=== PATIENT | female | born 1990 ===

== ENCOUNTER 2025-01-30 14:42 | Outpatient (AMB) | payer OTHER, SELFPAY ==
--- NOTE | 2025-01-30 14:47 | MHC.OFFVIS ---
Intake Visit Reasons: brain fog Allergies diphenhydramine (From [facility]) Allergy (Unknown, Verified 01/25/25 12:17) Unknown HPI Comments Details: This is a 34-year-old right-handed woman with a history of iron-deficiency anemia, insomnia and depression who has been experiencing periods of generalized weakness off and on for the last 2 years or so affecting the upper and lower extremities with fatigue. They can last from a few hours to several hours. She has had low B12 levels and is taking B12 supplements. On multiple occasions B12 levels have also been high. When she had stopped taking her B12 levels plummeted and she also had some brain fog and worsening of her weakness and some mumbling of words. She is had nerve conduction EMG studies in the past which were normal. Her MRI apparently showed a 2 mm pituitary microadenoma. Official report and films are not available for review and were not forwarded in the referral. FORMERLY [facility], [facility] Medical History (Updated 01/30/25 @ 15:32 by Marbella Cintron MD) Lichen sclerosus et atrophicus Positive APZ (antinuclear antibody) Vertigo Migraine Brain fog Review of Systems Const Reports fatigue and Reports headache(s) ENT Reports dizziness and Reports headache(s) Card Reports palpitations Reports dysuria Musc Reports abnormal gait and Reports arthralgias Neuro Reports abnormal gait, Reports dizziness, Reports headache(s) and Reports paresthesias Psych Reports anxiety and Reports depression Endo Reports fatigue and Reports palpitations Physical Exam Neuro Other: Mini Mental Status Exam Level of Consciousness:?Alert.? Orientation:?Knows correct year, month, date, day and season.?Knows correct city, county and state. Knows correct location and floor.? Registration:?Able to register 3 objects.? Attention:?Serial 7's performed?? accurately.? Recall:?Able to recall 3 out of 3 objects.? Language:?Normal spontaneous speech, fluency, repetition, naming, comprehension, reading, and writing.? ?? Total Score:?30/30.? Neurological Abnormal neurological findings:??None. ? Mental Status:?Alert and oriented X 3.?Normal attention, orientation, memory, and affect.? Cranial Nerves:?Pupils are equal, round and reactive to light. Fundoscopy shows normal disc bilaterally. External ocular muscles are intact. Visual wiseman are full, no ptosis. Face is symmetrical, no facial weakness or droop. Facial sensations are normal.? Tongue protrudes in midline. Palate elevates symmetrically. Shoulder?? shrugging is normal.? Motor Examination:?Normal muscle tone, bulk and strength.?No atrophy or fasciculations.?No drift of the extended upper extremities.?Deep tendon reflexes are 2+.?Plantars?? are flexor.? ?Motor Strength:? Proximal Muscles (out of 5):?5 Distal Muscles (out of 5):?5 Neck Flexors (out of 5):?5 Neck Extensors (out of 5):?5 Deltoid (out of 5):?5 Biceps (out of 5):?5 Triceps (out of 5):?5 Serratus Anterior (out of 5):?5 Wrist Extensors (out of 5):?5 APB (out of 5):?5 Finger Spread (out of 5):?5 Ileopsoas (out of 5):?5 Quadriceps (out of 5):?5 Hamstrings (out of 5):?5 Tibialis Anterior (out of 5):?5 Peronei (out of 5):?5 EDB (out of 5):?5 Gastrocnemius (out of 5):?5 Straight Leg Raising:?90 degrees.? Sensory Exam:?Normal light touch,?? temperature, pinprick, vibration and joint-position sensations.?Rhomberg?? sign is absent.? Coordination:?No ataxia,?no titubation,?znawoz-qa-iijf, bott-frra-uwdo test, and rapid alternating?? movements were normal.? Gait Exam:?Normal. ? Cerebellar Signs:?Gozgfx-ru-zubf and?? cuxf-iv-fyuk is normal.?No dysdiadochokinesia.? Extrapyramidal System:?No tremor or?rigidity, normal facial expressions.?No bradykinesia. No bradyphrenia. Normal arm swing and posture. No propulsion or retropulsion.? Speech:?Normal,?no dysphasia or dysarthria.? General Examination GENERAL APPEARANCE:??Morbid obesity, in no acute distress?.? ?? HEAD:??normocephalic,?atraumatic.? ?? EYES:??sclera non-icteric,?conjunctiva clear.? ?? EARS:??auditory canal clear,?tympanic membrane intact, clear.? ?? NOSE:??no lesions.? ?? ORAL CAVITY:??gums normal,?mucosa moist,?no lesions.? ?? THROAT:??clear.? ?? NECK/THYROID:??no cervical lymphadenopathy,?thyroid normal,?neck supple, full range of motion,?no carotid bruit.? ?? SKIN:??no rashes,?no significant?? birthmarks.? ?? HEART:??S1, S2 normal,?no murmurs? ?? LUNGS:??clear anteriorly and? posteriorly? ?? CHEST:??no gross rib deformity,?clear to? auscultation.? ?? BACK:??normal exam of spine.? ?? MUSCULOSKELETAL:??normal.? ?? EXTREMITIES:??no edema.? ?? PERIPHERAL PULSES:??normal.? ?? PSYCH:??alert, oriented,?cognitive function intact,?cooperative Assessment & Plan Assessment & Plan (1) Chronic fatigue: Code(s): R53.82 - Chronic fatigue, unspecified Category: Medical (2) Pituitary microadenoma: Comment: Questionable finding. No change from MRI in the remote past Code(s): D35.2 - Benign neoplasm of pituitary gland Category: Medical Plan Reassurance. Follow up with PCP. No neurological workup necessary at this time. Coding Level of Care Code New Pt Level 5 (69257) Diagnoses Chronic fatigue R53.82 Pituitary microadenoma D35.2
--- OUTSIDE RECORDS SUMMARY | 2025-01-30 16:01 | XMS_ITS | Encounter Summary ---
Author Organization [facility] Address [address] [place] [address] Care Team Providers Care Harmonic Analyst Name Role Phone Capo Alfonso MD Primary Care Pr ovider Encounter Details Date Type Department Care Team ([facility] st Contact Info) Description 11/24/2024 Results Follow-Up Adult Medicine [address] [phone] Alesia Finney PA [address] [place] [address] Social History Tobacco Use Types Packs/Day Years Used Date Smoking Tobacco: Never Smokeless Tobacco: Never Alcohol Use Standard Drinks/Week Comments No 0 (1 standard drink = 0.6 oz pur e alcohol) Housing Instability Answer Date Recorde d Are you worried that in the next 2 months you may not have stable housing? No 06/12/2024 Food Access & Nutrition Answer Date Rec orded Do you have access to a vari ety of food including fruits and vegetables? Yes 06/12/2024 Access to Healthcare Answer Date Record ed Within the last 3 months, ho w many times did you visit the emergency department for your medical care? 0 06/12/2024 Health Literacy Answer Date Recorded How often do you need to hav e someone help you when you read instructions, pamphlets, or other written material from your doctor or pharmacy? Never 06/12/2024 Caregiver: How often do you need to have someone help you when you read instructions, pamphlets, or other written material from your doctor or pharmacy? Not on file 06/12/2024 Financial Risk Answer Date Recorded How hard is it for you to pa y for the very basics like food, housing, medical care, and air conditioning / heating? Not very hard 06/12/2024 Transportation Answer Date Recorded Has the lack of transportati on kept you from meetings, work, or from getting things needed for daily living? No Has the lack of transportati on kept you from medical appointments or from getting medications? No 06/12/2024 Social Isolation Answer Date Recorded How often do you feel lonely or isolated from th ose around you? Never 06/12/2024 Food Risk Answer Date Recorded Within the past 12 months we worried whether our food would run out before we got money to buy more. Never true 06/12/2024 Within the past 12 months th e food we bought just didn't last and we didn't have money to get more. Never true 06/12/2024 Dependent Care Answer Date Recorded Do you need help finding or paying for care for your loved ones. For example, child development director or elderly care for an older adult? No 06/12/2024 Education Answer Date Recorded Do you think completing more education or training, like finishing a GED, going to college, or learning a trade, would be helpful for you? N/A 06/12/2024 Employment and Income Answer Date Recor ded During the last four weeks, have you been actively looking for work? No 06/12/2024 Living Situation Answer Date Recorded What is your living situation? Unrecognized valu e 06/12/2024 Comments No Sex and Gender Information Value Date Recorded Sex Assigned at Not on file Legal Sex Female 6:51 PM EST Gender Identity Not on file Sexual Orientation Not on file Occupation Industry Job Start Date Job End Date Not on file Not on file Not on file Not on file documented as of this encounter Plan of Treatment Upcoming Encounters Date Type Department Care Team (Late st Contact Info) Description 07/19/2025 12:30 PM EDT Office Visit Adult Medicine [address] [phone] Alesia Finney PA [address] [place] [address] documented as of this encounter Visit Diagnoses Not on filedocumented in this encounter Additional Health Concerns Assessment Noted Time PHQ-9 Depression Total Score: 3 06/13/19 25 3:35 PM EDT documented as of this encounter Care Teams Harmonic Analyst Relationship Specialty Start Date End Date Capo Alfonso MD [address] [place], [place] PCP - General Internal Medicine 09/01/21 documented as of this encounter
--- OUTSIDE RECORDS SUMMARY | 2025-01-30 16:01 | XMS_ITS | Encounter Summary ---
Author Organization [facility] Address [address] [place] [address] Care Team Providers Care Manager State Name Role Phone Capo Alfonso MD Primary Care Pr ovider Encounter Details Date Type Department Care Team ([facility] st Contact Info) Description 12/06/2024 Results Follow-Up Obstetrics and Gynecology - [address] [phone] Ashely Talavera, [facility] [address] [place], [place] Social History Tobacco Use Types Packs/Day Years [...] care for your loved ones. For example, childcare attendant or elderly care for an older adult? [...] Upcoming Encounters Date Type Department Care Team ([facility] st Contact Info) Description 07/19/2025 12:30 PM EDT Office Visit Adult Medicine [address] [phone] Alesia Finney PA [address] [place] [address] documented as of this encounter Visit Diagnoses Not on filedocumented in this encounter Additional Health Concerns Assessment Noted Time PHQ-9 Depression Total Score: 3 06/13/19 25 3:35 PM EDT documented as of this encounter Care Teams Manager State Relationship Specialty Start Date End Date Capo Alfonso MD [address] [place], [place] PCP - General Internal Medicine 09/01/21 documented as of this encounter
--- OUTSIDE RECORDS SUMMARY | 2025-01-30 16:01 | XMS_ITS ---
Author Name [facility] Organization Unknown Care Team Organization Name Specialty Phone Email Start Date End Da te [facility] TREMAINE RUEDA Primary Care [email or web address] 10/15/2022 4 [facility] Shirley [facility] Primary [facility] 12/16/2021 4
--- OUTSIDE RECORDS SUMMARY | 2025-01-30 16:01 | XMS_ITS | Clinical Summary ---
Author Organization [facility] [address] [place] [address] [place] [phone] Phone Care Team Providers Care Concrete Carpenter Name Role Phone Capo Alfonso MD Primary Care Pr ovider Allergies Active Allergy Reactions Criticality Noted Date Comments Nitrofurantoin Monohyd/M-Cryst Anaphylaxis High 12/0 08/2022 Other Anaphylaxis High 03/29/2012 Triaminic Pollen Extracts Itching 11/01/2014 Medications cholecalcifero l (VITAMIN D-3) 25 mcg (1,000 unit) capsule Take 1 Capsule by mouth daily. Active ferrous gluconate (FERGON) 240 mg (27 mg iron) tablet Take 1 Tablet by mouth every 48 hours. 2 Active MAGNESIUM ORAL Take by mouth. Active multivit-min/f errous fumarate (MULTI VITAMIN ORAL) Take by mouth. Active Lactobac no.41/Bifidoba ct no.7 (PROBIOTIC-10 ORAL) Take by mouth. Active cyanocobalamin (VITAMIN B-12) 1,000 mcg tablet Take 1 Tablet by mouth daily. 3 Active acetaminophen (TYLENOL) 500 mg tablet TAKE 2 TABLETS BY MOUTH 4 TIMES A DAY 4 Active cetirizine (ZyrTEC) 10 mg tablet Take 1 tablet (10 mg total) by mouth 1 (one) time each day. Active aspirin 81 mg EC tablet Take 1 tablet (81 mg total) by mouth 1 (one) time each day. Active triamcinolone (KENALOG) 0.1 % ointmentIndica tions:Other eczema Apply small amounts to affected area every 12 hours. Do not use for more than 14 days at a time 15 g 5 Active nystatin-triam cinolone (MYCOLOG II) ointment Apply a thin layer twice weekly 30 g 1 5 Active topiramate (TOPAMAX) 25 mg tabletIndicati ons:Migraine with visual aura Take 1 tablet (25 mg total) by mouth at bedtime. 90 each 5 025 Discontinued Active Problems Problem Noted Date Diagnosed Date Pituitary microadenoma 01/17/2025 Lichen sclerosus et atrophicus 07/04/2024 Overview (07/11/2024): On medial labia Assessment & Plan (07/04/2024 3:11 PM EDT): Based on findings, most likely represents a scar from a previous cyst, but this does not explain the hypopigmentation. I recommended a biopsy to determine etiology. She agreed. Vulvar Biopsy Reason for biopsy: Encounter Diagnosis Name Primary? Vulvar lesion Yes The patient was consented for vulvar biopsy. Risks reviewed including bleeding, infection, and hematoma formation. She was placed in dorsal lithotomy position. The area of planned biopsy was prepped with betadine and infiltrated with a total of 1 cc of 0.25% Marcaine. A 4 mm punch biopsy was taken and harvested with forceps and Iris scissors. Hemostasis was obtained with pressure and silver nitrate. Zinc oxide was applied. The patient tolerated the procedure well. Verbal and written instructions were provided. Eczema 06/14/2024 ASCUS of cervix with negative high risk HPV 02/09 Overview (02/29/2024): 01/2023 ascus, neg hpv Plan: per asccp repeat 3yrs Dysmenorrhea 11/09/2023 Menorrhagia with regular cycle 11/09/2023 Assessment & Plan (06/12/2024 3:42 PM EDT): For now she defers management. See HPI Fibroid uterus 11/14/2022 Overview (11/09/2023): 2017 There is a 1.4 x 1.8 x 1.1 cm hypoechoic subserosal myometrial mass posteriorly in the fundus consistent with a single small fibroid 11/09/2022 IMPRESSION: 1. Uterine fibroid measuring 5.8 cm 2. Possible arcuate configuration of the uterus 3. 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 Will update labs Orders: CBC and differential; Future Ferritin; Future Iron and TIBC; Future Vitamin B12; Future Vitamin D 25 hydroxy; Future Recurrent vaginitis 04/12/2018 Overview (11/09/2023): Last Assessment & Plan: I reviewed with May that she has had both yeast and BV, neither documented more than three times in the past year. As such, do not recommend that she is started on suppresive therapy. I did, however, recommend that she have office pH and lab wet smear, as well as yeast culture if she should develop recurrent symptoms in the future. She can see any provider, but this standard testing will be very helpful in determining if she has true recurrent infectious vaginitis. She agreed. Migraine with visual aura 11/01/2014 Assessment & Plan (06/12/2024 3:42 PM EDT): She is willing to try Topamax at night for migraine headache prophylaxis She will follow-up in 3 months She will continue Excedrin as needed for abortive therapy Orders: Comprehensive metabolic panel; Future topiramate (TOPAMAX) 25 mg tablet; Take 1 tablet (25 mg total) by mouth at bedtime. Vertigo 11/01/2014 Encounters Date Type Department Care Team Description 01/24/2025 Results Follow-Up Adult [address] [phone] Alesia Finney PA 01/22/2025 2:34 PM EST - 01/22/2025 11:59 PM EST Hospital Encounter Radiology Department - [address] [phone] Left-sided pelvic pain Discharge Disposition: Home or Self Care 01/22/2025 Results Follow-Up Obstetrics and Gynecology - [address] [phone] Tati Spencer CNM 01/17/2025 12:00 PM EST Lab Draw Station - [address] Iron deficiency anemia secondary to blood loss (chronic); Other fatigue; Vitamin D deficiency 01/17/2025 11:30 AM EST Office Visit Adult [address] [phone] Alesia Finney PA Other fatigue (Primary Dx); History of weakness of extremity; Migraine with visual aura; Pituitary microadenoma (CMS/HCC V24, CMS/HCC V28); Iron deficiency anemia secondary to blood loss (chronic); Vitamin D deficiency 12/25/2024 9:45 AM EST Office Visit Obstetrics and [facility] - [address] [phone] Tati Spencer CNM Left-sided pelvic pain (Primary Dx) 12/13/2024 3:20 PM EST Lab Draw Station - [address] Brain fog; Other fatigue; History of weakness of extremity 12/07/2024 1:33 PM EDT - 12/07/2024 11:59 PM EDT Hospital Encounter [facility] Ultrasound [address] [place] [id number] Left-sided pelvic pain Discharge Disposition: Home or Self Care 12/06/2024 Results Follow-Up Obstetrics and Gynecology - [address] [phone] Ashely Talavera CNM 12/05/2024 2:00 PM EDT Office Visit Obstetrics and Gynecology - [address] [phone] Ashely Talavera, ADALBERTO Left-sided pelvic pain (Primary Dx); Intermenstrual bleeding; Screen for STD (sexually transmitted disease); examination or test, negative result 11/30/2024 Telephone Obstetrics and Gynecology - [address] [phone] Monica Coughlin CNM 11/30/[address] [facility] - [address] [phone] Donnell Toledo NP 11/30/2024 Results Follow-Up Walk-In [facility] - [address] [phone] Donnell Toledo NP 11/29/2024 4:15 PM EDT Office Visit Walk-In [address] [phone] Donnell Toledo NP Lower urinary tract symptoms (Primary Dx) 11/29/2024 Nurse Triage Adult [address] [phone] Danni Greene MA 11/24/2024 Results Follow-Up Adult Medicine [address] [phone] Alesia Finney PA 11/22/2024 2:48 PM EDT - 11/22/2024 11:59 PM EDT Hospital Encounter Radiology Department - [address] [phone] Brain fog; Other fatigue; History of weakness of extremity; History of pituitary adenoma Discharge Disposition: Home or Self Care 11/08/2024 3:00 PM EDT Office Visit Adult Medicine South [address] [phone] Alesia Finney PA Other fatigue (Primary Dx); History of weakness of extremity; Brain fog; History of pituitary adenoma; Rash; Lichen sclerosus et atrophicus; Thrombocytosis from Last 3 Months Immunizations Immunization Administration Dates Next Due Influenza Quadravalent, MDCK , 0.5ml, preservative free (Flucelvax) 6mo and older 11/20/2022,12/01/2021 Influenza Quadravalent, MDCK , 0.5ml, with preservative (Flucelvax) 6mo and older 11/02/2019 Influenza Quadrivalent, 0.5m l, preservative free (Fluarix; FluLaval; Fluzone) ages 6mo and older (Afluria) 3yo and older 12/16/2018 Influenza trivalent, MDCK, 0 .5mL, preservative free (Flucelvax) 6mo and older 11/08/2024 Influenza trivalent, with pr eservative (Fluzone; Afluria) 6mo and older 12/16/2018 Influenza, Unspecified 10/23/2020,11/09/2019 Pfizer (ages 12 & older) Bivalent, COVID-19 11/09 Pfizer SARS-CoV-2 COVID-19, mRNA, LNP-S, preservative free 02/11/2021,02/05/2021 Tdap Tetanus diptheria acell ular pertussis (Boostrix; Adacel) 7yo and older 09/21/2022,03/29/2012 Surgical History Surgery Date Site/Laterality Comments WISDOM TOOTH EXTRACTION 2016 PROCEDURE: HISTORICAL WISDOM TEETH EXTRACTION MYOMECTOMY 11/09/2023 - 12/09/2023 Medical History Medical History Date Comments Vertigo 11/01/2014 DX:Vertigo Bacterial vaginosis 01/30/2020 DX:Bacterial vaginosis Vulvar itching 06/25/2017 DX:Vulvar itchin g Chronic constipation 06/25/2017 DX:Chronic constipation Family History Medical History Relation Name Comments No Known Problems Brother Colon cancer Father Liver cancer Father Hypertension Maternal Grandmother Thyroid disease Maternal Grandmother No Known Problems Mother Diabetes Paternal Grandfather Breast cancer Neg Hx Heart attack Neg Hx Ovarian cancer Neg Hx Relation Name Status Comments Brother Alive Father Alive Maternal Grandfather Alive Maternal Grandmother Alive Mother Alive Paternal Grandfather Paternal Grandmother Alive Social History Tobacco Use Types Packs/Day Years Used Date Smoking Tobacco: Never Smokeless Tobacco: Never Tobacco Cessation:Counseling Given: Not Answered Alcohol Use Standard Drinks/Week Comments No 0 [...] for your loved ones. For example, child watch attendant or elderly care for an older [...] file Not on file Not on file Obstetrics History Para Term AB IAB SAB Ectopic Multiple Livin g Live Births 0 0 0 0 0 0 0 0 Last Filed Vital Signs Vital Sign Reading Time Taken Comments Blood Pressure 123/73 01/17/2025 11:24 AM EST Pulse 83 01/17/2025 11:24 AM EST Temperature 35.9 C (96.6 F) 01/17/2025 11:24 AM EST Respiratory Rate 14 01/17/2025 11:24 AM EST Oxygen Saturation 98% 11/29/2024 4:01 PM EDT Inhaled Oxygen Concentration - - Weight 55.3 kg (122 lb) 01/17/2025 11:24 AM EST Height 160 cm (5' 3 ) 01/17/2025 11:24 AM EST Body Mass Index 21.61 01/17/2025 11:24 AM EST Plan of Treatment Upcoming Encounters Date Type Department Care Team (Late st Contact Info) Description 07/19/2025 12:30 PM EDT Office Visit Adult Medicine [address] [phone] Alesia Finney PA [address] [place] [address] Health Maintenance Due Date Last Done Comments Hepatitis B Vaccines (1 of 3 - 19+ 3-dose series) 2008 HPV Vaccines (1 - 3-dose SCDM series) 2016 HIV Screening 01/10/2022 Social Influencers of Health Screening 06/12/2025 06/12/2024 Cervical Cancer Screening: HPV 10/28/2027 10/27/2022 Cholesterol Screening (Lipid Panel) 06/14/2029 06/14/2024, 06/10/2023, 06/10/2023 DTaP,Tdap,and Td Vaccines (3 - Td or Tdap) 09/21/2032 09/21/2022, 03/29/2012 RSV Immunization Adult Patients (1 - 1-dose 75+ series) 2064 Hepatitis C Screening Completed 09/26/2021 COVID-19 Vaccine Discontinued 12/01/2021, 05/2021, 02/05/2021, Additional history exists Influenza Vaccine Completed 11/08/2024, , 12/01/2021, Additional history exists Depression Screening Completed 01/17/2025, 06/10/19 HIB Vaccines Aged Out No longer eligi ble based on patient's age to complete this topic Hepatitis A Vaccines Aged Out No long er eligible based on patient's age to complete this topic IPV Vaccines Aged Out No longer eligi ble based on patient's age to complete this topic MMR Vaccines Aged Out No longer eligi ble based on patient's age to complete this topic Meningococcal ACWY Vaccine Aged Out N o longer eligible based on patient's age to complete this topic Meningococcal B Vaccine Aged Out No l onger eligible based on patient's age to complete this topic Pneumococcal Vaccine: Pediatrics (0 to 5 Years) and At-Risk Patients (6 to 49 Years) Aged Out No longer eligible based on patient's age to complete this topic RSV Immunization Patients Under 20 months Aged Out No longer eligible based on patient's age to complete this topic Varicella Vaccines Aged Out No longer eligible based on patient's age to complete this topic Procedures Procedure Name Priority Date/Time Associated Diagnosis Comments US DUPLEX ABDOMEN/PELVIS/RETRO LIMITED Routine 01/22/2025 3:09 PM EST Left-sided pelvic pain US PELVIS NON OB COMPLETE W TRANSVAGINAL Routine 01/22/2025 3:09 PM EST Left-sided pelvic pain CBC WITH AUTO DIFFERENTIAL Routine 01/17/2025 11:56 AM EST Iron deficiency anemia secondary to blood loss (chronic) Other fatigue CBC AND DIFFERENTIAL Routine 01/17/2025 11:56 AM EST Iron deficiency anemia secondary to blood loss (chronic) Other fatigue IRON AND TIBC Routine 01/17/2025 11:56 AM EST Iron deficiency anemia secondary to blood loss (chronic) Other fatigue VITAMIN B12 Routine 01/17/2025 11:56 AM EST Iron deficiency anemia secondary to blood loss (chronic) Other fatigue VITAMIN D 25 HYDROXY Routine 01/17/2025 11:56 AM EST Iron deficiency anemia secondary to blood loss (chronic) Other fatigue Vitamin D deficiency FERRITIN Routine 01/17/2025 11:56 AM EST Iron deficiency anemia secondary to blood loss (chronic) Other fatigue CBC WITH AUTO DIFFERENTIAL Routine 12/13/2024 3:28 PM EST Other fatigue History of weakness of extremity CBC AND DIFFERENTIAL Routine 12/13/2024 3:28 PM EST Other fatigue History of weakness of extremity COMPREHENSIVE METABOLIC PANEL Routine 12/13/2024 3:28 PM EST Other fatigue History of weakness of extremity VITAMIN B12 Routine 12/13/2024 3:28 PM EST Brain fog Other fatigue THYROID STIMULATING HORMONE WITH REFLEX TO FREE T4 AND FREE T3 Routine 12/13/2024 3:28 PM EST Brain fog Other fatigue US PELVIS NON OB COMPLETE W TRANSVAGINAL Routine 12/07/2024 2:26 PM EDT Left-sided pelvic pain POC , URINE DIAGNOSTIC Routine 12/05/2024 3:58 PM EDT Left-sided pelvic pain TRICHOMONAS VAGINALIS ANTIGEN Routine 12/05/2024 2:47 PM EDT Left-sided pelvic pain CULTURE URINE Routine 12/05/2024 2:47 PM EDT Left-sided pelvic pain WET PREP, GENITAL Routine 12/05/2024 2:4 7 PM EDT Left-sided pelvic pain CHLAMYDIA TRACHOMATIS AND NEISSERIA GONORRHOEAE PCR Routine 12/05/2024 2:47 PM EDT Screen for STD (sexually transmitted disease) POC URINE NON-AUTO W/O MICRO Routine 11/29/2024 4:26 PM EDT Lower urinary tract symptoms URINALYSIS MICROSCOPIC ONLY Routine 11/29/2024 4:21 PM EDT Lower urinary tract symptoms URINALYSIS MICROSCOPIC ONLY Routine 11/29/2024 4:21 PM EDT Lower urinary tract symptoms VAGINITIS PATHOGENS BY PCR Routine 11/29/2024 4:21 PM EDT Lower urinary tract symptoms CULTURE URINE Routine 11/29/2024 4:21 PM EDT Lower urinary tract symptoms MR BRAIN WO AND W CONTRAST Routine 11/22/2024 3:44 PM EDT Brain fog Other fatigue History of weakness of extremity History of pituitary adenoma LIPID PANEL WITH REFLEX TO DIRECT LDL Routine 06/14/2024 9:27 AM EDT Screening for metabolic disorder HM DEPRESSION SCREENING Routine 06/10/2023 HM HPV Routine 10/27/2022 HM HEPATITIS C SCREENING Routine 09/26/2021 from Last 3 Months or Most Recently Relevant to Health Maintenance Results * US Pelvis Non OB Complete w Transvaginal (01/22/2025 3:09 PM EST) Only the most recent of2 resultswithin the time period is included. Anatomical Region Laterality Modality Body, Pelvis Ultrasound 01/22/2025 3:22 PM EST Impressions 01/22/2025 3:29 PM EST 1. Echogenic ovoid lesions within the endometrium which may represent polyps. Consider direct visualization. 2. Intramural fibroids. 3. Right ovarian cyst with multiple echoes. Follow-up ultrasound in 6-8 weeks is recommended. 4. Trace free fluid -------- FINAL REPORT -------- Dictated By: Kristen Schultz Dictated Date: 01/22/2025 15:22 ET Assigned Physician: Kristen Schultz Reviewed and Electronically Signed By: Kristen Schultz Signed Date: 01/22/2025 15:29 ET Workstation ID: [id number] Transcribed By: Self Edit Transcribed Date: 01/22/2025 15:22 ET Narrative 01/22/2025 3:29 PM EST EXAM: TRANSABDOMINAL AND TRANSVAGINAL PELVIC ULTRASOUND HISTORY: abnormal uterine bleeding COMPARISON: Ultrasound pelvis from 08/05/2023 Technique: Grayscale and Doppler images of the pelvis were obtained using transabdominal approach. Transvaginal approach was used to better characterize the ovaries. Color Doppler flow and spectral waveform analysis FINDINGS: The uterus is normal in size and measures 8.2 x 4.0 x 5.2 cm. The endometrial stripe measures up to 0.9 cm. Echogenic ovoid lesions measuring 0.8 x 0.2 x 0.6 cm and 0.7 x 0.2 x 0.6 cm within the endometrium. Hypoechoic solid masses within the intramural region measuring 1.0 x 0.8 x 1.0 cm and 1.0 x 0.6 x 1.0 cm. Right ovary measures 4.0 x 2.9 x 2.9 cm and contains an anechoic thin-walled cyst with multiple echoes measuring 2.7 x 3.1 x 3.0 cm. Normal arterial and venous waveforms are identified. Left ovary measures 3.2 x 1.7 x 1.4 cm and is also sonographically unremarkable. Normal arterial waveform is present. The venous waveform is not seen. Trace free fluid. Procedure Note Kristen Schultz MD - 01/22/2025 EXAM: TRANSABDOMINAL AND TRANSVAGINAL PELVIC ULTRASOUND HISTORY: abnormal uterine bleeding COMPARISON: Ultrasound pelvis from 08/05/2023 Technique: Grayscale and Doppler images of the pelvis were obtained usingtransabdominal approach. Transvaginal approach was used to bettercharacterize the ovaries. Color Doppler flow and spectral waveformanalysis FINDINGS: The uterus is normal in size and measures 8.2 x 4.0 x 5.2 cm. Theendometrial stripe measures up to 0.9 cm. Echogenic ovoid lesionsmeasuring 0.8 x 0.2 x 0.6 cm and 0.7 x 0.2 x 0.6 cm within theendometrium. Hypoechoic solid masses within the intramural regionmeasuring 1.0 x 0.8 x 1.0 cm and 1.0 x 0.6 x 1.0 cm. Right ovary measures 4.0 x 2.9 x 2.9 cm and contains an anechoicthin-walled cyst with multiple echoes measuring 2.7 x 3.1 x 3.0 cm. Normalarterial and venous waveforms are identified. Left ovary measures 3.2 x 1.7 x 1.4 cm and is also sonographicallyunremarkable. Normal arterial waveform is present. The venous waveform isnot seen. Trace free fluid. IMPRESSION: 1. Echogenic ovoid lesions within the endometrium which may representpolyps. Consider direct visualization. 2. Intramural fibroids. 3. Right ovarian cyst with multiple echoes. Follow-up ultrasound in 6-8weeks is recommended. 4. Trace free fluid -------- FINAL REPORT -------- Dictated By: Kristen Schultz Dictated Date: 01/22/2025 15:22 ET Assigned Physician: Kristen Schultz Reviewed and Electronically Signed By: Kristen Schultz Signed Date: 01/22/2025 15:29 ET Workstation ID: [id number] Transcribed By: Self Edit Transcribed Date: 01/22/2025 15:22 ET us Tati Spencer CNM IMG US PROCEDURES Final Res ult * US Duplex Abdomen/Pelvis/Retro Limited (01/22/2025 3:09 PM EST) Anatomical Region Laterality Modality Body Ultrasound 01/22/2025 3:22 PM EST Impressions 01/22/2025 3:29 PM EST 1. Echogenic ovoid lesions within the endometrium which may represent polyps. Consider direct visualization. 2. Intramural fibroids. 3. Right ovarian cyst with multiple echoes. Follow-up ultrasound in 6-8 weeks is recommended. 4. Trace free fluid -------- FINAL REPORT -------- Dictated By: Kristen Schultz Dictated Date: 01/22/2025 15:22 ET Assigned Physician: Kristen Schultz Reviewed and Electronically Signed By: Kristen Schultz Signed Date: 01/22/2025 15:29 ET Workstation ID: [id number] Transcribed By: Self Edit Transcribed Date: 01/22/2025 15:22 ET Narrative 01/22/2025 3:29 PM EST EXAM: TRANSABDOMINAL AND TRANSVAGINAL PELVIC ULTRASOUND HISTORY: abnormal uterine bleeding COMPARISON: Ultrasound pelvis from 08/05/2023 Technique: Grayscale and Doppler images of the pelvis were obtained using transabdominal approach. Transvaginal approach was used to better characterize the ovaries. Color Doppler flow and spectral waveform analysis FINDINGS: The uterus is normal in size and measures 8.2 x 4.0 x 5.2 cm. The endometrial stripe measures up to 0.9 cm. Echogenic ovoid lesions measuring 0.8 x 0.2 x 0.6 cm and 0.7 x 0.2 x 0.6 cm within the endometrium. Hypoechoic solid masses within the intramural region measuring 1.0 x 0.8 x 1.0 cm and 1.0 x 0.6 x 1.0 cm. Right ovary measures 4.0 x 2.9 x 2.9 cm and contains an anechoic thin-walled cyst with multiple echoes measuring 2.7 x 3.1 x 3.0 cm. Normal arterial and venous waveforms are identified. Left ovary measures 3.2 x 1.7 x 1.4 cm and is also sonographically unremarkable. Normal arterial waveform is present. The venous waveform is not seen. Trace free fluid. Procedure Note Kristen Schultz MD - 01/22/2025 EXAM: TRANSABDOMINAL AND TRANSVAGINAL PELVIC ULTRASOUND HISTORY: abnormal uterine bleeding COMPARISON: Ultrasound pelvis from 08/05/2023 Technique: Grayscale and Doppler images of the pelvis were obtained usingtransabdominal approach. Transvaginal approach was used to bettercharacterize the ovaries. Color Doppler flow and spectral waveformanalysis FINDINGS: The uterus is normal in size and measures 8.2 x 4.0 x 5.2 cm. Theendometrial stripe measures up to 0.9 cm. Echogenic ovoid lesionsmeasuring 0.8 x 0.2 x 0.6 cm and 0.7 x 0.2 x 0.6 cm within theendometrium. Hypoechoic solid masses within the intramural regionmeasuring 1.0 x 0.8 x 1.0 cm and 1.0 x 0.6 x 1.0 cm. Right ovary measures 4.0 x 2.9 x 2.9 cm and contains an anechoicthin-walled cyst with multiple echoes measuring 2.7 x 3.1 x 3.0 cm. Normalarterial and venous waveforms are identified. Left ovary measures 3.2 x 1.7 x 1.4 cm and is also sonographicallyunremarkable. Normal arterial waveform is present. The venous waveform isnot seen. Trace free fluid. IMPRESSION: 1. Echogenic ovoid lesions within the endometrium which may representpolyps. Consider direct visualization. 2. Intramural fibroids. 3. Right ovarian cyst with multiple echoes. Follow-up ultrasound in 6-8weeks is recommended. 4. Trace free fluid -------- FINAL REPORT -------- Dictated By: Kristen Schultz Dictated Date: 01/22/2025 15:22 ET Assigned Physician: Kristen Schultz Reviewed and Electronically Signed By: Kristen Schultz Signed Date: 01/22/2025 15:29 ET Workstation ID: [id number] Transcribed By: Self Edit Transcribed Date: 01/22/2025 15:22 ET us Tati Spencer CNM IMG US PROCEDURES Final Res ult * (ABNORMAL) CBC auto differential (01/17/2025 11:56 AM EST) Only the most recent of2 resultswithin the time period is included. WBC 8.9 4.8 - 10.8 K/[facility] LAB HEMETOLOGY METHOD 01/17/2025 2:37 PM [facility] RBC 4.30 3.80 - 4.80 M/mcL LAB HEMETOLOGY METHOD 01/17/2025 2:37 PM [facility] Hemoglobin 13.3 11.5 - 16.0 g/dL LAB HEMETOLOGY METHOD 01/17/2025 2:37 PM [facility] Hematocrit 40.3 35.0 - 47.0 % LAB HEMETOLOGY METHOD 01/17/2025 2:37 PM [facility] MCV 92.9 79.0 - 98.0 FL LAB HEMETOLOGY METHOD 01/17/2025 2:37 PM [facility] MCH 30.6 27.0 - 32.0 pcg LAB HEMETOLOGY METHOD 01/17/2025 2:37 PM [facility] MCHC 33.0 32.0 - 37.0 g/dL LAB HEMETOLOGY METHOD 01/17/2025 2:37 PM [facility] RDW 13.5 11.0 - 15.0 % LAB HEMETOLOGY METHOD 01/17/2025 2:37 PM [facility] Platelets 532(H) 130 - 400 K/mcL LAB HEMETOLOGY METHOD 01/17/2025 2:37 PM [facility] MPV 10.2 7.0 - 11.0 FL LAB HEMETOLOGY METHOD 01/17/2025 2:37 PM [facility] NRBC 0.0 <1.0 % LAB HEMETOLOGY METHOD 01/17/2025 2:37 PM [facility] NRBC Absolute 0.00 <0.10 K/mcL LAB HEMETOLOGY METHOD 01/17/2025 2:37 PM [facility] Neutrophils Relative 53.9 % LAB HEMETOLOGY METHOD 01/17/2025 2:37 PM [facility] Lymphocytes Relative 27.4 % LAB HEMETOLOGY METHOD 01/17/2025 2:37 PM [facility] Monocytes Relative 10.7 % LAB HEMETOLOGY METHOD 01/17/2025 2:37 PM [facility] Eosinophils Relative 5.6 % LAB HEMETOLOGY METHOD 01/17/2025 2:37 PM [facility] Basophils Relative 1.6 % LAB HEMETOLOGY METHOD 01/17/2025 2:37 PM [facility] Immature Granulocytes Relative 0.8 % LAB HEMETOLOGY METHOD 01/17/2025 2:37 PM [facility] Neutrophils Absolute 4.82 1.50 - 7.00 K/mcL LAB HEMETOLOGY METHOD 01/17/2025 2:37 PM [facility] Lymphocytes Absolute 2.45 1.00 - 5.00 K/mcL LAB HEMETOLOGY METHOD 01/17/2025 2:37 PM [facility] Monocytes Absolute 0.96 0.20 - 1.00 K/mcL LAB HEMETOLOGY METHOD 01/17/2025 2:37 PM [facility] Eosinophils Absolute 0.50 0.00 - 0.50 K/mcL LAB HEMETOLOGY METHOD 01/17/2025 2:37 PM [facility] Basophils Absolute 0.14 0.00 - 0.20 K/mcL LAB HEMETOLOGY METHOD 01/17/2025 2:37 PM [facility] Immature Granulocytes Absolute 0.07(H) 0.00 - 0.03 K/mcL LAB HEMETOLOGY METHOD 01/17/2025 2:37 PM [facility] Blood Venous blood specimen / Unknown Venipuncture / Unknown 01/17/2025 11:56 AM EST 01/17/2025 11:56 AM EST us Alesia WEBBER LAB BLOOD ORDERABLES Final Re sult [facility] [address] [place] [address], [place] [phone] * Iron and TIBC (01/17/2025 11:56 AM EST) [facility] Iron 106 40 - 150 mcg/dL 01/17/2025 4:01 PM EST [facility] TIBC 307 250 - 450 mcg/dL 01/17/2025 4:01 PM EST [facility] Iron Saturation 35 15 - 50 % 4:01 PM [facility] Blood Venous blood specimen / Unknown Venipuncture / Unknown 01/17/2025 11:56 AM EST 01/17/2025 11:56 AM EST us Alesia WEBBER LAB BLOOD ORDERABLES Final Re sult Performing Organization Address City/[facility]/ZIP Co de Phone Number [facility] [address] [place] [address], [place] [phone] * Vitamin D 25 hydroxy (01/17/2025 11:56 AM EST) [facility] Vit D, 25-Hydroxy 51.1 30.0 - 80.0 ng/mL 01/17/2025 4:01 PM EST [facility] Blood Venous blood specimen / Unknown Venipuncture / Unknown 01/17/2025 11:56 AM EST 01/17/2025 11:56 AM EST us Alesia WEBBER LAB BLOOD ORDERABLES Final Re sult [facility] [address] [place] [address], [place] [phone] * Ferritin (01/17/2025 11:56 AM EST) [facility] Ferritin 19 7 - 271 ng/mL 01/17/2025 4:01 PM EST [facility] Blood Venous blood specimen / Unknown Venipuncture / Unknown 01/17/2025 11:56 AM EST 01/17/2025 11:56 AM EST us Alesia WEBBER LAB BLOOD ORDERABLES Final Re sult Performing Organization Address City[facility]/ZIP Co de Phone Number [facility] [address] [place] [address], [place] [phone] * Vitamin B12 (01/17/2025 11:56 AM EST) Only the most recent of2 resultswithin the time period is included. [facility] Vitamin B-12 733 211 - 911 pcg/mL 01/17/2025 4:02 PM EST [facility] Blood Venous blood specimen / Unknown Venipuncture / Unknown 01/17/2025 11:56 AM EST 01/17/2025 11:56 AM EST us Alesia WEBBER LAB BLOOD ORDERABLES Final Re sult Performing Organization Address [facility] Co de Phone Number [facility] [address] [place] [address], [place] [phone] * Thyroid stimulating hormone with reflex to free t4 and free t3 (12/13/2024 3:28 PM EST) [facility] TSH 1.79 0.40 - 4.00 mcIU/mL LAB CHEMISTRY METHOD 12/13/2024 8:08 PM EST [facility] Blood Venous blood specimen / Unknown Venipuncture / Unknown 12/13/2024 3:28 PM EST 12/13/2024 3:28 PM EST us Alesia WEBBER LAB BLOOD ORDERABLES Final Re sult [facility] [address] [place] [address], [place] [phone] * (ABNORMAL) Comprehensive metabolic panel (12/13/2024 3:28 PM EST) Sodium 136 133 - 145 mmol/L LAB CHEMISTRY METHOD 12/13/2024 7:51 PM [facility] Potassium 3.8 3.5 - 5.5 mmol/L LAB CHEMISTRY METHOD 12/13/2024 7:51 PM [facility] Chloride 106 96 - 110 mmol/L LAB CHEMISTRY METHOD 12/13/2024 7:51 PM [facility] CO2 23 21 - 32 mmol/L LAB CHEMISTRY METHOD 12/13/2024 7:51 PM [facility] Anion Gap 7 3 - 11 LAB CHEMISTRY METHOD 12/13/2024 7:51 PM [facility] Glucose 79 70 - 100 mg/dL LAB CHEMISTRY METHOD 12/13/2024 7:51 PM [facility] BUN 13 5 - 25 mg/dL LAB CHEMISTRY METHOD 12/13/2024 7:51 PM [facility] Creatinine 0.48(L) 0.50 - 1.10 mg/dL LAB CHEMISTRY METHOD 12/13/2024 7:51 PM [facility] eGFR 127 >=60 mL/min/1. 73m2 LAB CHEMISTRY METHOD 12/13/2024 7:51 PM [facility] Comment:Calculation based on the Chronic Kidney Disease Epidemiology Collaboration (CKD-EPI) equation refit without adjustment for race. BUN/Creatinine Ratio 27.1 LAB CHEMISTRY METHOD 12/13/2024 7:51 PM [facility] Calcium 9.1 8.5 - 10.5 mg/dL LAB CHEMISTRY METHOD 12/13/2024 7:51 PM [facility] AST (SGOT) 15 10 - 42 unit/L LAB CHEMISTRY METHOD 12/13/2024 7:51 PM [facility] ALT (SGPT) 19 10 - 60 unit/L LAB CHEMISTRY METHOD 12/13/2024 7:51 PM [facility] Alkaline Phosphatase 74 42 - 121 unit/L LAB CHEMISTRY METHOD 12/13/2024 7:51 PM [facility] Total Protein 7.0 6.0 - 8.0 g/dL LAB CHEMISTRY METHOD 12/13/2024 7:51 PM [facility] Albumin 4.1 3.2 - 5.0 g/dL LAB CHEMISTRY METHOD 12/13/2024 7:51 PM [facility] Total Bilirubin 0.2 0.0 - 1.4 mg/dL LAB CHEMISTRY METHOD 12/13/2024 7:51 PM [facility] Blood Venous blood specimen / Unknown Venipuncture / Unknown 12/13/2024 3:28 PM EST 12/13/2024 3:28 PM EST us Alesia WEBBER LAB BLOOD ORDERABLES Final Re sult [facility] [address] [place] [address], [place] [phone] * POC , urine manually resulted (12/05/2024 3:58 PM EDT) HCG, Ur POC Negative Negative POC hCG Int QC Pass? Yes Yes Urine Urine specimen obtained by clean catch procedure / Unknown 12/05/2024 3:58 PM EDT Ashely Talavera CNM POINT OF CARE TEST ENTER/EDIT ORDERABLES Final Result * Trichomonas vaginalis antigen (12/05/2024 2:47 PM EDT) Trichomonas vaginalis Negative Negative 12/05/2024 8:35 PM EDT [facility] Swab Vaginal structure / Unknown Non-blood Collection / Unknown 12/05/2024 2:47 PM EDT 12/05/2024 2:47 PM EDT us Ashely HOSKINS LAB MICROBIOLOGY - GENERAL ORD ERABLES Final Result [facility] [address] [place] [address], [place] [phone] * Chlamydia trachomatis and Neisseria gonorrhoeae molecular study (12/05/2024 2:47 PM EDT) Neisseria gonorrhoeae PCR Negative Negative LAB MOLECULAR DIAGNOSTICS METHOD 12/06/2024 9:39 AM EDT [facility] Chlamydia trachomatis PCR Negative Negative LAB MOLECULAR DIAGNOSTICS METHOD 12/06/2024 9:39 AM EDT [facility] Swab Cervix uteri structure / Unknown Non-blood Collection / Unknown 12/05/2024 2:47 PM EDT 12/05/2024 2:47 PM EDT us Ashely HOSKINS LAB MICROBIOLOGY - GENERAL ORD ERABLES Final Result Performing Organization Address City[facility]/ZIP Co de Phone Number [facility] [address] [place] [address], [place] [phone] * Wet prep, genital (12/05/2024 2:47 PM EDT) Clue Cells, Wet Prep Negative Negative 12/05/2024 8:32 PM EDT [facility] Yeast, Wet Prep Negative Negative 12/05/2024 8:32 PM EDT [facility] Trichomonas, Wet Prep Indeterminate Negative 12/05/2024 8:32 PM EDT [facility] Comment:Refer to Trichomonas antigen. Swab Vaginal structure / Unknown Non-blood Collection / Unknown 12/05/2024 2:47 PM EDT 12/05/2024 2:47 PM EDT Ashely Talavera [facility] MICROBIOLOGY - GENERAL ORD ERABLES Final Result Performing Organization Address City[facility]/ZIP Co de Phone Number [facility] [address] [place] [address], [place] [phone] * Culture urine (12/05/2024 2:47 PM EDT) Only the most recent of2 resultswithin the time period is included. Pathologist [facility] Culture, Urine 10,000-49,000 CFU/mL Mixed urogenital samuel, no uropathogens present. Suggest repeat specimen if clinically indicated. 12/06/2024 2:26 PM EDT [facility] Urine Urine specimen obtained by clean catch procedure / Unknown Non-blood Collection / Unknown 12/05/2024 2:47 PM EDT 12/05/2024 2:47 PM EDT Ashely Talavera [facility] MICROBIOLOGY - GENERAL ORD ERABLES Final Result Performing Organization Address City[facility]/ZIP Co de Phone Number [facility] [address] [place] [address], [place] [phone] * (ABNORMAL) POC Urine Non-Auto W/O Micro (11/29/2024 4:26 PM EDT) GLUCOSE POC Negative Negative, Trace mg/dL Leukocytes UA POC Negative Negative mg/dL Comment:trace Nitrite UA POC Negative Urobilinogen UA POC 0.2 E.U./dL mg/dL Protein UA POC Positive Positive, Negative PH UA POC 8.0 ZORA/HM UA POC 50(A) Negative Specific [place] UA POC <=1.005 Ketones UA POC Negative Negative Bilirubin UA POC Negative Negative Urine Urine specimen obtained by clean catch procedure / Unknown 11/29/2024 4:26 PM EDT us Donnell Toledo NP POINT OF CARE TEST ENTER/EDIT ORDERABLES Final Result * Urinalysis microscopic only (11/29/2024 4:21 PM EDT) RBC, Urine 3.0 0 - 4 /HPF LAB URINALYSIS - AUTOMATED METHOD 11/29/2024 8:04 PM EDT [facility] WBC, Urine 1.6 0 - 4 /HPF LAB URINALYSIS - AUTOMATED METHOD 11/29/2024 8:04 PM EDT [facility] Squamous Epithelial, Urine 37 0 - 60 /LPF LAB URINALYSIS - AUTOMATED METHOD 11/29/2024 8:04 PM EDT [facility] Bacteria, Urine Negative Negative /HPF LAB URINALYSIS - AUTOMATED METHOD 11/29/2024 8:04 PM EDT [facility] Hyaline Casts, Urine 0.0 0 - 3 /LPF LAB URINALYSIS - AUTOMATED METHOD 11/29/2024 8:04 PM EDT [facility] Urine Urine specimen obtained by clean catch procedure / Unknown Non-blood Collection / Unknown 11/29/2024 4:21 PM EDT 11/29/2024 4:21 PM EDT Donnell Toledo NP LAB URINE ORDERABLES Final Re sult [facility] [address] [place] [address], * Vaginitis pathogens molecular study (11/29/2024 4:21 PM EDT) Trichomonas vaginalis Negative Negative 11/30/2024 11:23 AM EDT [facility] Gardnerella vaginalis Negative Negative 11/30/2024 11:23 AM EDT [facility] Tsering Species Negative Negative 11:23 AM EDT [facility] Swab Vaginal structure / Unknown Non-blood Collection / Unknown 11/29/2024 4:21 PM EDT 11/29/2024 4:21 PM EDT us Donnell Toledo NP LAB MICROBIOLOGY - GENERAL OR DERABLES Final Result [facility] [address] [place] [address], [place] [phone] * MR Brain wo and w Contrast (11/22/2024 3:44 PM EDT) Anatomical Region Laterality Modality Head and Neck Magnetic Resonan ce 11/24/2024 10:2 2 AM EDT Narrative 11/24/2024 10:50 AM EDT MRI of the head and pituitary fossa without and with intravenous contrast. History of pituitary microadenoma. Weakness, fatigue, brain fog. Examination was performed on 1.5 Gina magnet without administration of intravenous contrast. Postcontrast portion of the exam was performed after administration of 10 mL of DOTAREM. Contrast-enhanced pituitary protocol with dynamic administration of the contrast was utilized. Comparison with prior MRI examinations, latest from 05/07/2020. Pituitary gland was visualized with somewhat heterogeneous enhancement. There is possible tiny focus of decreased enhancement in the inferior anterior lobe measuring approximately 2 mm. Pituitary stalk is midline. Optic chiasm is not compressed. There is no evidence of midline shift, extra or intra-axial blood fluid collections. There is no visible masses or mass effect in the brain and cerebellum. Ventricular system is symmetric and normal in size. Fourth ventricle and basal cisterns are midline and patent. There is no focal areas of restricted diffusion. There is stable appearance of presumed developmental venous anomaly in the medial aspect of the left cerebellum. There is mild mucosal thickening in the left aspect of the sphenoid sinus and scattered areas of mucosal thickening in the ethmoid air cells. Mastoid processes are aerated. CONCLUSIONS: Possible tiny microadenoma in the anterior inferior aspect of the pituitary gland. 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 Mild mucosal abnormalities in the paranasal sinuses. No significant interval change since prior study. -------- FINAL REPORT -------- Dictated By: Steffany Camacho Dictated Date: 11/24/2024 10:22 ET Assigned Physician: Steffany Camacho Reviewed and Electronically Signed By: Steffany Camacho Signed Date: 11/24/2024 10:50 ET Workstation ID: [id number] Transcribed By: Self Edit Transcribed Date: 11/24/2024 10:22 ET Procedure Note Steffany Camacho MD - 11/24/2024 MRI of the head and pituitary fossa without and with intravenous contrast. History of pituitary microadenoma. Weakness, fatigue, brain fog. Examination was performed on 1.5 Gina magnet without administration ofintravenous contrast. Postcontrast portion of the exam was performed afteradministration of 10 mL of DOTAREM. Contrast-enhanced pituitary protocolwith dynamic administration of the contrast was utilized. Comparison withprior MRI examinations, latest from 05/07/2020. Pituitary gland was visualized with somewhat heterogeneous enhancement.There is possible tiny focus of decreased enhancement in the inferioranterior lobe measuring approximately 2 mm. Pituitary stalk is midline.Optic chiasm is not compressed. There is no evidence of midline shift, extra or intra-axial blood fluidcollections. There is no visible masses or mass effect in the brain andcerebellum. Ventricular system is symmetric and normal in size. Fourthventricle and basal cisterns are midline and patent. There is no focalareas of restricted diffusion. There is stable appearance of presumeddevelopmental venous anomaly in the medial aspect of the leftcerebellum. There is mild mucosal thickening in the left aspect of the sphenoid sinusand scattered areas of mucosal thickening in the ethmoid air cells.Mastoid processes are aerated. CONCLUSIONS: Possible tiny microadenoma in the anterior inferior aspect of thepituitary gland. Stable developmental venous anomaly in the leftcerebellum. Mild mucosal abnormalities in the paranasal sinuses. Nosignificant interval change since prior study. -------- FINAL REPORT -------- Dictated By: Steffany Camacho Dictated Date: 11/24/2024 10:22 ET Assigned Physician: Steffany Camacho Reviewed and Electronically Signed By: Steffany Camacho Signed Date: 11/24/2024 10:50 ET Workstation ID: [id number] Transcribed By: Self Edit Transcribed Date: 11/24/2024 10:22 ET us Alesia WEBBER IMG MRI PROCEDURES Final Resu lt * Lipid panel with reflex to direct LDL (06/14/2024 9:27 AM EDT) [facility] Cholesterol 165 0 - 200 mg/dL LAB CHEMISTRY METHOD 06/14/2024 1:47 PM EDT [facility] Triglycerides 74 0 - 150 mg/dL LAB CHEMISTRY METHOD 06/14/2024 1:47 PM EDT [facility] HDL 61 >=40 mg/dL LAB CHEMISTRY METHOD 06/14/2024 1:47 PM EDT [facility] LDL Calculated 89 0 - 100 mg/dL LAB CHEMISTRY METHOD 06/14/2024 1:47 PM EDT [facility] VLDL Cholesterol Ezra 14.8 mg/dL LAB CHEMISTRY METHOD 06/14/2024 1:47 PM EDT [facility] Non HDL Chol. (LDL+VLDL) 104 <145 mg/dL LAB CHEMISTRY METHOD 06/14/2024 1:47 PM EDT [facility] Chol/HDL Ratio 2.7 0.0 - 4.4 LAB CHEMISTRY METHOD 06/14/2024 1:47 PM EDT [facility] Blood Venous blood specimen / Unknown Venipuncture / Unknown 06/14/2024 9:27 AM EDT 06/14/2024 9:27 AM EDT Capo Alfonso MD LAB BLOOD ORDERA BLES Final Result [facility] [address] [place] [address], * Depression Screening (06/10/2023) [facility] Depression Screening Abstracted Historical Provider HEALTH MAINTENANCE Final Result * Cervical Cancer Screening: HPV (10/27/2022) [facility] Cervical Cancer Screening: HPV Negative, Abstracted Historical Provider HEALTH MAINTENANCE Final Result * Hepatitis C Screening (09/26/2021) Hepatitis C Screening Abstracted Historical Provider HEALTH MAINTENANCE Final Result from Last 3 Months or Most Recently Relevant to Health Maintenance Insurance [facility] [address] PL[address] Care Teams Concrete Carpenter Relationship Specialty Start Date End Date Capo Alfonso MD [address] [facility] [place] PCP - General Internal Medicine 09/01/21
--- OUTSIDE RECORDS SUMMARY | 2025-01-30 16:02 | XMS_ITS | Clinical Summary ---
Author Organization [facility] Prior to 07/08/24 Address [address] [place] [address] Care Team Providers Care Manager Coding Name Role Phone Capo Alfonso MD Primary Care Pr ovider Allergies Active Allergy Reactions Criticality Noted Date Comments Nitrofurantoin 12/22/2022 Pollen Extract Itching 12/21/2022 Acetaminophen Anaphylaxis High 12/21/2022 Medications Medication Sig Dispensed Refills Start Date End Date Status ferrous gluconate (FERGON) 240 (27 FE) MG tablet Take 1 tablet (240 mg total) by mouth. 1 tab every 48 hours 0 Active Magnesium 100 MG CAPS Take 1 capsule by mouth daily. 0 Active Probiotic Product (Probiotic-10) CHEW Chew by mouth daily. 0 Active Ashwagandha 125 MG CAPS Take 1 capsule by mouth daily. 0 Active Multiple Vitamin (MULTIVITAMIN ADULT PO) Take 1 tablet by mouth daily. 0 Active cetirizine (ZyrTEC) 10 MG tablet Take 1 tablet (10 mg total) by mouth daily. 0 Active Cyanocobalamin 1000 MCG CAPS Take 1 capsule by mouth daily. 30 capsule 2 12/22/2022 Active Xixyyzetunxavze-WC-B G (ROBITUSSIN CF PO) Take by mouth. 0 Active Social History Tobacco Use Types Packs/Day Years Used Date Smoking Tobacco: Never Smokeless Tobacco: Never Tobacco Cessation:Counseling Given: Not Answered Alcohol Use Standard Drinks/Week Comments Never 0 (1 standard drink = 0.6 oz pur e alcohol) Sex and Gender Information Value Date Recorded Sex Assigned at Not on file Gender Identity Not on file Sexual Orientation Not on file Job Start Date Occupation Industry Not on file Not on file Not on file Last Filed Vital Signs Vital Sign Reading Time Taken Comments Blood Pressure 133/76 01/07/2023 11:46 AM EST Pulse 117 01/07/2023 11:46 AM EST Temperature 37.8 C (100 F) 01/07/2023 11:46 AM EST Respiratory Rate - - Oxygen Saturation 100% 01/07/2023 11:46 AM EST Inhaled Oxygen Concentration - - Weight 55.8 kg (123 lb) 01/07/2023 11:46 AM EST Height 160 cm (5' 3 ) 12/22/2022 8:51 AM EST Body Mass Index 21.79 12/22/2022 8:51 AM EST Plan of Treatment Health Maintenance Due Date Last Done Comments Hepatitis B Vaccines (1 of 3 - 3-dose series) 1989 Hepatitis C Screening 1989 Depression Screening 2001 Preventative Health Evaluation 06/05/2007 Cervical Cancer Screening (Pap Smear) 2010 COVID-19 Vaccine (2024-2 6 season) 2024 02/05/2021, 03/05/2020, 02/13/2020 Influenza Vaccine (#1) 2024 , 11/02/2019, 12/16/2018 DTap / Tdap / Td (3 - Td or Tdap) 09/21/2032 09/21/2022, 03/29/2012 Pneumococcal Vaccine Aged Out No long er eligible based on patient's age to complete this topic RSV Ped < 20 months Aged Out No longe r eligible based on patient's age to complete this topic Care Teams Manager Coding Relationship Specialty Start Date End Date Capo Alfonso MD [address] [place] [address] PCP - General 10/27/22
--- OUTSIDE RECORDS SUMMARY | 2025-01-30 16:02 | XMS_ITS | Encounter Summary ---
Author Organization [facility] Address [address] [place] [address] Care Team Providers Care Riddler Operator Name Role Phone Capo Alfonso MD Primary Care Pr ovider Reason for Referral * Imaging (Routine) - Pending Review Specialty Diagnoses / Procedures Referred By Fatmata t Referred To Contact Radiology Diagnoses Right ovarian cyst Procedures US Pelvis Non OB Complete w Transvaginal Tati Spencer CNM [address] [place] [address] Phone: tel: fax: [address] [address] Phone: tel: Referral ID Status Reason Start Date Expiration Date V isits Requested Visits Authorized [id number] Pending Review 01/22/2025 01/22/2026 1 1 * Consultation (Routine) - Pending Review Specialty Diagnoses / Procedures Referred By Fatmata t Referred To Contact Obstetrics and Gynecology Diagnoses Abnormal pelvic ultrasound Tati Spencer CNM [address] [place] [address] Phone: tel: fax: [facility] [address] [place] [address] Phone: tel: fax: Referral ID Status Reason Start Date Expiration Date Visits Requested Visits Authorized [id number] Pending Review Specialty Services Required 5 01/22/2026 1 1 Encounter Details Date Type Department Care Team (Late st Contact Info) Description 01/22/2025 Results Follow-Up Obstetrics and Gynecology - [address] [address] Tati Spencer CNM [address] [place] [id number] Social History Tobacco Use Types Packs/Day Years [...] care for your loved ones. For example, early childhood specialist or elderly care for an older adult? [...] 12:30 PM EDT Office Visit Adult Medicine [address] [address] Alesia Finney PA [address] [place] [address] Scheduled Orders Name Type Priority Associated Diagnoses Orde r Schedule US Pelvis Non OB Complete w Transvaginal Imaging Routine Right ovarian cyst Expected: 03/08/2025, Expires: 01/22/2026 Scheduled Referrals Name Type Priority Associated Diagnoses Order Schedule Ambulatory referral to Obstetrics / Gynecology Outpatient Referral Routine Abnormal pelvic ultrasound 1 Occurrences starting 01/22/2025 until 01/22/2026 documented as of this encounter Visit Diagnoses Diagnosis Right ovarian cyst- Primary Other and unspecified ovarian cyst Abnormal pelvic ultrasound documented in this encounter Additional Health Concerns Assessment Noted Time PHQ-9 Depression Total Score: 0 01/18/20 25 11:27 AM EST documented as of this encounter Care Teams Riddler Operator Relationship Specialty Start Date End Date Cpao Alfonso MD [address] [place] [address] PCP - General Internal Medicine 09/01/21 documented as of this encounter
--- OUTSIDE RECORDS SUMMARY | 2025-01-30 16:02 | XMS_ITS | Encounter Summary ---
Author Organization [facility] Address [address] [place] [address] Care Team Providers Care Healthcare Applications Analyst Name Role Phone Capo Alfonso MD Primary Care Pr ovider Encounter Details Date Type Department Care Team (Late st Contact Info) Description 11/30/2024 Results Follow-Up Walk-In Clinic - [facility] [address] [place] [phone] Donnell Toledo NP [address] [place], [place] [id number] Social History Tobacco Use Types Packs/Day Years [...] for your loved ones. For example, child protection specialist or elderly care for an older [...] 12:30 PM EDT Office Visit Adult Medicine [address] [address] Alesia Finney PA [address] [place] [address] documented as of this encounter Visit Diagnoses Not on filedocumented in this encounter Additional Health Concerns Assessment Noted Time PHQ-9 Depression Total Score: 3 06/13/19 25 3:35 PM EDT documented as of this encounter Care Teams Healthcare Applications Analyst Relationship Specialty Start Date End Date Capo Alfonso MD [address] [place], [place] PCP - General Internal Medicine 09/01/21 documented as of this encounter
--- OUTSIDE RECORDS SUMMARY | 2025-01-30 16:02 | XMS_ITS | Encounter Summary ---
Author Organization [facility] Address [address] [place] [address] Care Team Providers Care Visual Education Director Name Role Phone Capo Alfonso MD Primary Care Pr ovider Encounter Details Date Type Department Care Team (Late st Contact Info) Description 01/24/2025 Results Follow-Up Adult Medicine [address] [phone] Alesia Finney PA [address] [place] [address] Social History Tobacco Use Types Packs/Day Years [...] 12:30 PM EDT Office Visit Adult Medicine [address] [phone] Alesia Finney PA [address] [place] [address] documented as of this encounter Visit Diagnoses Not on filedocumented in this encounter Additional Health Concerns Assessment Noted Time PHQ-9 Depression Total Score: 0 01/18/20 25 11:27 AM EST documented as of this encounter Care Teams Visual Education Director Relationship Specialty Start Date End Date Capo Alfonso MD [address] [place], [place] PCP - General Internal Medicine 09/01/21 documented as of this encounter
== END 2025-01-30 15:34 | disposition home or self-care (01) ==
PROVIDERS: PCP Family Medicine; Visit Provider Psychiatry & Neurology Neurology
DX: R53.82 Chronic fatigue, unspecified (principal); D35.2 Benign neoplasm of pituitary gland
CPT/HCPCS: 99205

== ENCOUNTER → 2025-01-30 14:42 | Outpatient (BNVA) | payer OTHER, SELFPAY | PROVIDERS: PCP Family Medicine; Visit Provider Psychiatry & Neurology Neurology | DX: D35.2 Benign neoplasm of pituitary gland (principal); R53.82 Chronic fatigue, unspecified | CPT/HCPCS: 99202 ==